=== PATIENT | male | born 1970 | race Two or more races ===

== ENCOUNTER 2023-09-13 20:17 | Emergency (ER) | payer OTHER ==
[~2023-09-13] VITALS: Ht 170.2 cm; Wt 90.7 kg
[2023-09-13 20:21] VITALS: TEMP 98.7
[2023-09-13] MEDS ORDERED: HYDROCODONE/APAP 5/325MG TABLET ONE (21:27)
[2023-09-13] MEDS: HYDROCODONE/APAP 5/325MG TABLET PO ONE (21:30)
[2023-09-13] MEDS ORDERED: ACETAMINOPHEN ES 500 MG TABLET ONE (21:35)
[2023-09-13] MEDS: ACETAMINOPHEN ES 500 MG TABLET PO ONE (21:38)
[2023-09-13] MEDS ORDERED: GLYB5TAB7 PO (22:29)
[2023-09-13 22:37] VITALS: BP 141/87; O2SAT 99
== END 2023-09-13 22:38 | disposition home or self-care (01) ==
LOC: ER 20:20
DX: S13.8XXA Sprain of joints and ligaments of other parts of neck, initial encounter (principal); S40.012A Contusion of left shoulder, initial encounter; S70.02XA Contusion of left hip, initial encounter; M25.552 Pain in left hip; E11.9 Type 2 diabetes mellitus without complications; F17.200 Nicotine dependence, unspecified, uncomplicated; Z79.899 Other long term (current) drug therapy; Z60.2 Problems related to living alone; V89.2XXA Person injured in unspecified motor-vehicle accident, traffic, initial encounter; Y93.89 Activity, other specified; Y92.89 Other specified places as the place of occurrence of the external cause; Y99.8 Other external cause status
CPT/HCPCS: 72125-TC; 73030-TC; 73502; 73552